=== PATIENT | female | born 1990 | race Caucasian/White ===

== ENCOUNTER → 2021-08-30 | Outpatient (CLI) | payer BC ==
[2021-08-30 23:07] LABS: African American GFR (CKD) 134.4 (60.0-200.0); BUN/Creat Ratio 11.14 Ratio (12.00-20.00); Blood Urea Nitrogen 7.5 mg/dL (9.0-27.0); Carbon Dioxide 24.3 mmol/L (20.0-27.5); Potassium 3.8 mmol/L (3.5-5.5)
[2021-08-30 23:47] LABS: Basophils # (A) 0.03 X 10*3/uL (0.00-0.10); Basophils % (A) 0.4 %; Eosinophils # (A) 0.29 X 10*3/uL (0.04-0.35); Eosinophils % (A) 3.8 %; HCT 33.6 % (37.2-46.3); HGB 9.9 g/dL (12.0-15.0); Immature Grans, Automated 0.3 %; Lymphocytes # (A) 2.38 X 10*3/uL (0.90-5.00); Lymphocytes % (A) 31.4 %; MCH 25.8 pg (27.0-32.0); MCHC 29.5 g/dL (32.0-37.0); MCV 87.7 fL (80.0-97.0); Mean Platelet Volume 12.6 fL (9.5-12.2); Monocytes # (A) 0.74 X 10*3/uL (0.20-1.00); Monocytes % (A) 9.7 %; NRBC Per 100 WBC 0 /100 WBCS (0.0-0.0); Neutrophils # (A) 4.13 X 10*3/uL (1.80-7.70); Neutrophils % (A) 54.4 %; Platelet Count 192 X 10*3/uL (140-440); RBC 3.83 X 10*6/uL (4.10-5.20); RDW 16.9 % (11.5-14.5); WBC 7.59 X 10*3/uL (4.50-10.00)
[2021-08-31 01:46] LABS: Appearance,Urine Clear (Clear); Bilirubin,Urine Negative (Negative); Blood,Urine Negative (Negative); Color,Urine Yellow (Yellow); Ketones,Urine Negative (Negative); Nitrite,Urine Negative (Negative); PH, Urine 5.5 (5.0-8.0); Specific Gravity,Urine 1.005 (1.001-1.030); Urobilinogen,Urine 0.2 (0.2,1.0)
== END | disposition home or self-care (01) ==
LOC: LABPAT 14:14
PROVIDERS: ATTEND Urology
DX: Z01.812 Encounter for preprocedural laboratory examination (principal); N20.1 Calculus of ureter
CPT/HCPCS: 36415; 80048; 81003; 85025; 87086